=== PATIENT | female | born 1990 | race Hispanic/Latino ===

== ENCOUNTER 2024-12-29 17:33 | Emergency (ER) | payer OTHER ==
[~2024-12-29] VITALS: Ht 165.1 cm; Wt 115.3 kg
[2024-12-29] MEDS ORDERED: IOPAMIDOL 370 MG/ML 100 ML INFUS..BTL INJ ONE (18:43)
[2024-12-29] MEDS: LACTATED RINGER'S 1,000 ML INJ ONE (19:07)
[2024-12-29] MEDS: ONDANSETRON HCL INJ 2MG/ML 2ML 2 MG/ML VIAL IV ONE (19:07)
[2024-12-29] MEDS: FAMOTIDINE 20 MG/2 ML VIAL IV ONE (19:07)
[2024-12-29] MEDS: KETOROLAC TROMETHAMINE 30 MG/ML VIAL IV ONE (19:08)
[2024-12-29 19:50] VITALS: PULSE 100; RESP 18; TEMP 98.8
[2024-12-29] MEDS ORDERED: MAALOX MAXIMUM355 ML PO (19:53)
[2024-12-29] MEDS ORDERED: ONDANSETRON ODT4 MG PO (19:53)
[2024-12-29] MEDS ORDERED: FAMOTIDINE20 MG PO (19:53)
[2024-12-29 20:42] VITALS: BP 106/58; PULSE 100; RESP 18; TEMP 98.8; O2SAT 96
== END 2024-12-29 20:42 | disposition home or self-care (01) ==
LOC: FSED 17:58
DX: R11.2 Nausea with vomiting, unspecified (principal); K52.9 Noninfective gastroenteritis and colitis, unspecified; R10.12 Left upper quadrant pain; E86.0 Dehydration; R53.81 Other malaise
CPT/HCPCS: 74177; 80048; 80076; 81003; 81025; 83518; 85025; 87400; 96374; 96375; 99284; J1308; J1885; J2405; J7121; Q9967